=== PATIENT | female | born 1940 | race Two or more races ===

== ENCOUNTER 2020-09-23 11:19 | Outpatient (CLI) | payer OTHER ==
[~2020-09-23 11:19] MED LIST: COZAAR100 MG; JANUVIA100 MG
== END 2020-09-23 11:22 | disposition home or self-care (01) ==
LOC: SONOGRAMA 11:19
PROVIDERS: ATTEND Pathology Anatomic Pathology & Clinical Pathology
DX: E04.2 Nontoxic multinodular goiter (principal)